=== PATIENT | female | born 1955 | race Caucasian/White ===

== ENCOUNTER 2019-12-12 16:32 | Emergency (ER) | payer BC ==
[~2019-12-12] VITALS: Ht 152.4 cm; Wt 76.2 kg
[2019-12-12 17:03] VITALS: BP_SYST 154
[2019-12-12] MEDS ORDERED: ATOR20TA64 PO (17:03)
[2019-12-12] MEDS ORDERED: LEVO100T PO (17:03)
[2019-12-12 17:14] VITALS: BP_SYST 154
== END 2019-12-12 17:14 | disposition home or self-care (01) ==
LOC: SED 16:32
DX: J34.89 Other specified disorders of nose and nasal sinuses (principal); Z88.0 Allergy status to penicillin; Z88.2 Allergy status to sulfonamides
CPT/HCPCS: 99283

== ENCOUNTER 2020-01-01 15:48 | Emergency (ER) | payer BC ==
[~2020-01-01] VITALS: Ht 147.3 cm; Wt 77.1 kg
[2020-01-01 15:48] VITALS: BP_SYST 126
[~2020-01-01 15:48] MED LIST: ATOR20TA64 PO; LEVO100T PO
--- NOTE | 2020-01-01 15:50 | NUR ---
Note josenelson in EDM - 01/01/20 at 1721 by [email or web address] Patient presented to ER C/O sinus pain. Patient A&Ox4, ambulatory to ER, afenbrile, skin pink and warm, pain 11/08, denies N/V/D. Patient states she has sinus pain intermittent since 12/10/2019.
--- NOTE | 2020-01-01 15:55 | NUR ---
BROUGHT BACK TO BED #3 AND TRIAGED. REPORT GIVEN TO SHARI
--- NOTE | 2020-01-01 16:00 | NUR ---
Patient presented to ER C/O sinus pain. Patient A&Ox4, ambulatory to ER, afenbrile, skin pink and warm, pain 11/08, denies N/V/D. Patient states she has sinus pain intermittent since 12/10/2019.
[2020-01-01] MEDS ORDERED: cefTRIAXone 1 GM VIAL IM ONE (16:15)
[2020-01-01] MEDS ORDERED: KETOROLAC TROMETHAMINE 60 MG/2 ML VIAL IM ONE (16:15)
--- NOTE | 2020-01-01 16:19 | NUR ---
DR PERRY AT BEDSIDE FOR EVALUATION
--- NOTE | 2020-01-01 17:01 | NUR ---
PT medicated per MD order.
[2020-01-01 17:34] VITALS: BP_SYST 128
--- NOTE | 2020-01-01 17:34 | NUR ---
Patient given written and verbal discharge instructions and verbalizes understanding. ER MD discussed with patient the results and treatment provided. Patient in stable condition. ID arm band removed. Rx of LEVAQUIN, NAPROXEN, MEDROL given. Patient educated on pain management and to follow up with PMD. Pain Scale 3/10 . Opportunity for questions provided and answered. Medication side effect fact sheet provided.
== END 2020-01-01 17:34 | disposition home or self-care (01) ==
LOC: SED 15:48
DX: J32.9 Chronic sinusitis, unspecified (principal); F17.200 Nicotine dependence, unspecified, uncomplicated; Z79.899 Other long term (current) drug therapy; Z88.0 Allergy status to penicillin; Z88.2 Allergy status to sulfonamides; Z88.1 Allergy status to other antibiotic agents
CPT/HCPCS: 96372; 99284; J0696; J1885